=== PATIENT | male | born 1965 | race American Indian/Alaskan Native ===

== ENCOUNTER 2018-02-11 09:03 | Outpatient (CLI) | payer SELFPAY ==
[2018-02-11 09:52] LABS: Blood Urea Nitrogen 16 mg/dL (9-20)
--- NOTE | 2018-02-11 11:21 | Cat Scan Report ---
FINAL REPORT EXAM: CT ABDOMEN PELVIS WO/W CON HISTORY: OTHER MICROSCOPIC HEMATURIA TECHNIQUE: CT of the abdomen and pelvis without and with IV contrast. Coronal and sagittal reconstructed imaging provided. PRIORS: None currently available. FINDINGS: ABDOMEN: Kidneys: Symmetrical cortical enhancement. No hydronephrosis. No nephroureteral stones. 4 mm low-density cortical lesion in the inferior left kidney is too small to accurately characterize. Statistically this probably represents a cyst. Mild fatty liver. No suspicious enhancement or lesions. Indeterminate left adrenal nodule measures 2.0 x 1.7 cm. Right adrenal glands unremarkable. Gallbladder, stomach, spleen, and pancreas are unremarkable. There is no abdominal aortic aneurysm. No dissection. IVC is unremarkable. There is no periaortic or retroperitoneal adenopathy or mass. [id number] stool. No wall thickening or inflammatory changes. Terminal ileum is unremarkable. Appendix is normal. Small bowel loops are unremarkable. No obstructive pattern. No free air. No free fluid. Mesentery is unremarkable. Fat-containing umbilical hernia without strangulation. PELVIS: Bladder is distended and unremarkable. No wall thickening. No abnormal enhancing lesion. No stone. Heterogeneous prostate with calcification is mildly prominent. No pelvic mass or adenopathy. Inguinal regions are unremarkable. Bones: No suspicious osseous lesions on this limited examination of the skeleton. Metastatic disease better evaluated with bone scan. Degenerative changes are in the spine. IMPRESSION: Probable left subcentimeter renal cortical cyst. Mild fatty liver. Indeterminate left adrenal nodule.
== END 2018-02-11 09:04 | disposition home or self-care (01) ==
LOC: CT 09:03
PROVIDERS: ATTEND Urology
DX: R31.29 Other microscopic hematuria (principal); K76.0 Fatty (change of) liver, not elsewhere classified; K42.9 Umbilical hernia without obstruction or gangrene; M47.899 Other spondylosis, site unspecified; E27.8 Other specified disorders of adrenal gland
CPT/HCPCS: 36415; 74178; 82565; 84520; Q9967